=== PATIENT | female | born 1950 | race Caucasian/White ===

== ENCOUNTER → 2017-10-13 | Day surgery (SDC) | payer MEDICARE, OTHER ==
[~2017-10-13] MED LIST: ASPIR 8181 MG PO; ATENOLOL50 MG PO; ATORVASTATIN CA20 MG PO; FENTANYL CITRATE/PF 100MCG/2 ML INJ ONE; HUMALOG100 UNIT/1 SC; LOSARTAN POTASS25 MG PO; MIDAZOLAM HCL 2 MG/2 ML VIAL ONE; MUCINEX DM ER1 EACH PO; SYMBICORT 80-10.2 GM INH; ZYRTEC-D TABLE1 EACH PO
--- OUTSIDE RECORDS SUMMARY | 2017-10-13 09:22 | XMS REPORT | Summary of Care ---
Author Author [facility] Address [address] [place] [address] Phone Unavailable Care Team Providers Care Woodworking Machinist Name Role Phone GABI Kimbrough, VIRIDIANA Unavailable Unavailable ALVAREZ Kimbrough, KATHARINA Unavailable Unavailable MARY Kimbrough, ASTRID Unavailable Unavailable ALVAREZ WOODS [place], KATHARINA Unavailable Unavailable Unavailable Unavailable Functional Status Name Dates Details Functional status health issues are not documented Status: Name Dates Details Cognitive status health issues are not documented Status: Problems Name Dates Details Perennial allergic rhinitis, unspecified allergic rhinitis trigger Status: Active History of carcinoma in situ of colon (V13.89, Z86.008) Status: Active Other iron deficiency anemia (280.8, D50.8) Status: Active Vitamin B12 deficiency (266.2, E53.8) Status: Active Post-menopausal (V49.81, Z78.0) Status: Active Need for hepatitis C screening test (V73.89, Z11.59) Status: Active Acid reflux disease with ulcer (530.81, K21.9) Status: Active Moderate asthma (493.90, J45.909) Status: Active Screening mammogram, encounter for (V76.12, Z12.31) Status: Active Advance directive discussed with patient (V65.49, Z71.89) Status: Active Depression screen (V79.0, Z13.89) Status: Active Encounter for mini-mental status examination Status: Active Risk for falls (V15.88, Z91.81) Status: Active 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 (250.50, E13.3213) Status: Active Other cataract of both eyes (366.19, H26.8) Status: Active Bilateral dry eyes (375.15, H04.123) Status: Active Intestinal metaplasia of gastric mucosa (537.89, K31.89) Status: Active Polyp of colon (211.3, K63.5) Status: Active Anemia, pernicious (281.0, D51.0) Status: Active 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, 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) Status: Active Right elbow pain (719.42, M25.521) Status: Active Need for pneumococcal vaccination (V03.82, Z23) Status: Active Allergic reaction to drug, initial encounter (995.27, T78.40XA) Status: Active Limb pain (729.5, M79.609) Status: Active Tendinitis of right triceps (726.39, M77.8) Status: Active Pre-op exam (V72.84, Z01.818) Status: Active Preop examination (V72.84, Z01.818) Status: Active Insulin pump in place (V45.85, Z96.41) Status: Active Osteoporosis without current pathological fracture, unspecified osteoporosis type (733.00, M81.0) Status: Active Postmenopausal HRT (hormone replacement therapy) (V07.4, Z79.890) Status: Active Hiatal hernia (553.3, K44.9) Status: Active Abnormal blood chemistry (790.6, R79.9) Status: Active Lung nodule (793.11, R91.1) Status: Active Personal history of actinic keratosis (V13.3, Z87.2) Status: Active Personal history of malignant neoplasm of skin (V10.83, Z85.828) Status: Active Dermatofibroma of right thigh (216.7, D23.71) Status: Active Seborrheic keratoses (702.19, L82.1) Status: Active Anna angioma (228.01, D18.01) Status: Active Solar lentigo (709.09, L81.4) Status: Active Neoplasm of uncertain behavior of skin (238.2, D48.5) Status: Active Arthropod bite, sequela (906.2, W57.XXXS) Status: Active Chest pain (786.50, R07.9) Status: Active Acute URI (465.9, J06.9) Status: Active Asthma (493.90, J45.909) Status: Active Coronary artery disease due to calcified coronary lesion (414.00, I25.10) Status: Active History of basal cell carcinoma (V10.83, Z85.828) Status: Resolved Abnormal EKG (794.31, R94.31) Status: Active Mixed hyperlipidemia (272.2, E78.2) Status: Active SOBOE (shortness of breath on exertion) (786.05, R06.02) Status: Active Diabetic peripheral neuropathy associated with type 1 diabetes mellitus (250.61 , E10.42) Status: Active Pain of left thumb (729.5, M79.645) Status: Active Vitamin D deficiency (268.9, E55.9) Status: Active Trigger finger of left thumb (727.03, M65.312) Status: Active Uncontrolled type 1 diabetes with diabetic neuropathy (250.63, E10.40) Status: Active Renal insufficiency (593.9, N28.9) Status: Active Hypocalcemia (275.41, E83.51) Status: Active Hyperparathyroidism, secondary (588.81, N25.81) Status: Active Hypokalemia (276.8, E87.6) Status: Active 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 (250.51, E10.3293) Status: Active Acute serous otitis media of left ear, recurrence not specified (381.01, H65.02 ) Status: Active Benign essential hypertension (401.1, I10) Status: Active Medications Name Dates Details Fluticasone Propionate 50 MCG/ACT Nasal Suspension USE 2 SPRAYS IN EACH NOSTRIL ONCE DAILY Quantity: 1 SATTAR M.D., KATHARINA Active 16 GM Bottle HumaLOG 100 UNIT/ML Subcutaneous Solution Basal: [place] 0.8; 3A 0.85; 9AM 0.925; 1230PM 0.725; 4PM 0.8: ICR: [place] 1:10, 7AM 1:9 , 1030AM 1:9; CF:100 MDD:80 U * Quantity: 7 Refills: 0 GABI M.D.VIRIDIANA Active 10 ML Vial HydroCHLOROthiazide 25 MG Oral Tablet TAKE 1 TABLET BY MOUTH EVERY DAY * Quantity: 90 Refills: 0 SATTAR M.D., KATHARINA * Start : 21-Aug-2017 Active Aspirin 81 MG TABS TAKE 1 TABLET DAILY. * Quantity: 30 Refills: 3 Active Atenolol 25 MG Oral Tablet TAKE 1/2 TABLET DAILY. * Quantity: 45 Refills: 1 SATTAR M.D., KATHARINA Active Fish Oil Concentrate 1000 MG Oral Capsule 1-2 capsules daily * Refills: 0 Active Atorvastatin Calcium 80 MG Oral Tablet TAKE 1 TABLET BY MOUTH EVERY DAY * Quantity: 90 Refills: 0 SATTAR M.D., KATHARINA * Start : 07-Jul-2017 Active Losartan Potassium 25 MG Oral Tablet TAKE 1/2 TABLET DAILY. * Quantity: 45 Refills: 1 SATTAR M.D., KATHARINA Active Symbicort 160-4.5 MCG/ACT Inhalation Aerosol INHALE 2 PUFFS BY MOUTH TWICE A DAY. RINSE MOUTH AFTER USE * Quantity: 1 Refills: 0 SATTAR M.D. KATHARINA Active 6 GM Inhaler Zyrtec 10 MG TABS * Refills: 0 Active Claritin 10 MG/10ML SYRP * Refills: 0 Active Glucagon Emergency 1 MG Injection Kit USE DIRECTED. * Quantity: 1 Refills: 0 SATTAR M.D., KATHARINA * Start : 14-Aug-2016 Active ProAir HFA 108 (90 Base) MCG/ACT Inhalation Aerosol Solution INHALE 1 TO 2 PUFFS EVERY 4 TO 6 HOURS NEEDED. * Quantity: 1 Refills: 0 SATTAR M.D., KATHARINA * Start : 14-Aug-2016 Active Vitamin B-12 50 MCG Oral Tablet TAKE 1 TABLET DAILY. * Refills: 0 Active Multivitamins TABS TAKE 1 TABLET DAILY. * Refills: 0 Active Tums CHEW TAKE TABLET PRN * Refills: 0 Active Isa Contour Next Test In Vitro Strip CHECK BLOOD GLUCOSE 10 TIMES DAILY. * Quantity: 900 Refills: 0 VIRIDIANA ASHLEY M.D. * Start : 04-Feb-2017 Active Triamcinolone Acetonide 0.1 % External Cream Apply small amount to affected areas twice daily. Avoid face, folds of groin, folds of armpit. * Quantity: 1 Refills: 6 ASTRID HERNANDEZ M.D. * Start : 05-May-2017 Active 80 GM Tube Insulin Syringe 31G X 5/16" 0.3 ML use to inject with insulin vials once daily * Quantity: 1 Refills: 0 VIRIDIANA ASHLEY M.D. * Start : 13-Jul-2017 Active 100 Unit Box Azithromycin 250 MG Oral Tablet TAKE 2 TABLETS ON DAY 1 THEN TAKE 1 TABLET A DAY FOR 4 DAYS. * Quantity: 1 Refills: 0 KATHARINA PINO M.D. * Start : 12-Aug-2017 Active 6 Tablet Box Allergies and Adverse Reactions Name Dates Details amoxicillin (Allergy) Status: Active Amoxicillin TABS (Allergy) Status: Active Avelox (Allergy) Status: Active Ceftin (Allergy) Status: Active Cefzil (Allergy) Status: Active codeine (Allergy) Status: Active Compazine (Allergy) Status: Active Levaquin TABS (Allergy) Status: Active Phenergan (Allergy) Status: Active Pneumovax 23 25 MCG/0.5ML Injection Injectable (Allergy) Status: Active Sulfa Drugs (Allergy) Status: Active Past Medical History Name Dates Details History of basal cell carcinoma (V10.83, Z85.828) Status: Resolved History of cardiac disorder (V12.50, Z86.79) Status: Resolved History of History of cardiac catheterization (V45.89, Z98.890) Status: Resolved History of Pedal edema (782.3, R60.0) Status: Resolved History of tachycardia (V13.89, Z87.898) Status: Resolved Procedures Procedure Dates Details [QLH] CMP W/EGFR Date: 12-Aug-2017 [QLH] VITAMIN D, 25-HYDROXY, LC/MS/MS Date: 12-Aug-2017 [QLH] CALCIUM, IONIZED Date: 12-Aug-2017 [QLH] PHOSPHATE ( PHOSPHORUS) Date: 12-Aug-2017 [QLH] PTH, INTACT (WITHOUT CALCIUM) Date: 12-Aug-2017 History of Hysterectomy Completed History of Tonsillectomy Completed History of Facial Surgery Completed History of Sinus Surgery Completed History of Gallbladder Surgery Completed History of Colon Surgery Completed History of Cholecystectomy Completed History of varicose vein sclerotherapy Completed Immunization Name Dates Details Pneumovax 23 25 MCG/0.5ML Injection Injectable on: 16-Jun-2004 Tdap (Adacel) on: 09-Mar-2014 Zoster (Zostavax) on: 16-Jun-2014 Pneumo (Prevnar 7) on: 14-Nov-2014 Fluarix SUSP on: 16-Mar-2016 Flulaval Quadrivalent 0.5 ML SUSP on: 23-Feb-2017 Pneumococcal polysaccharide vaccine, 23 valent Lot #: [id number] on: 02-Mar-2017 Family History Name Dates Details Family history of cardiac disorder (V17.49, Z82.49) Status: Active Family history of osteoporosis (V17.81, Z82.62) Status: Active Name Dates Details Family history of cardiac disorder (V17.49, Z82.49) Status: Active Family history of osteoporosis (V17.81, Z82.62) Status: Active Name Dates Details Family history of diabetes mellitus (V18.0, Z83.3) Status: Active Name Dates Details Family history of hyperthyroidism (V18.19, Z83.49) Status: Active Name Dates Details Family history of cerebrovascular accident (CVA) (V17.1, Z82.3) Status: Active Family history of hypertension (V17.49, Z82.49) Status: Active Family history of hyperthyroidism (V18.19, Z83.49) Status: Active Family history of Heart trouble (429.9, I51.9) Status: Active Family history of cardiac disorder (V17.49, Z82.49) Status: Active Family history of osteoporosis (V17.81, Z82.62) Status: Active Family history of basal cell carcinoma (V16.8, Z80.8) Status: Active Name Dates Details Family history of COPD with asthma (493.20, J44.9) Status: Active Family history of Heart trouble (429.9, I51.9) Status: Active Family history of cardiac disorder (V17.49, Z82.49) Status: Active Family history of basal cell carcinoma (V16.8, Z80.8) Status: Active Name Dates Details Family history of osteoporosis (V17.81, Z82.62) Status: Active Social History Name Dates Details - Status: Name Dates Details Never smoker Vital Signs Date Test Result Details No Known Vitals to report Results Date Description Value Details :45 [QLH] PHOSPHATE ( PHOSPHORUS) PHOSPHATE ( PHOSPHORUS) 4.9 mg/dl (Above high threshold) Range: 2.1-4.3 :45 [QLH] PTH, INTACT (WITHOUT CALCIUM) PARATHYROID HORMONE, INTACT 40 pg/ml (Normal) Range: 14-64 Comments: Interpretive Guide Intact PTH Calcium -------Normal Parathyroid Normal NormalHypoparathyroidism Low or Low Normal LowHyperparathyroidism Primary Normal or High High Secondary High Normal or Low Tertiary High HighNon- Parathyroid Hypercalcemia Low or Low Normal High 18-Aug-20178:45 [QL] VITAMIN D, 25-HYDROXY, LC/MS/MS VITAMIN D,25-OH,TOTAL,IA 45 ng/ml (Normal) Range: 30-100 Comments: Vitamin D Status 25-OH Vitamin D: Deficiency: <20 ng/mLInsufficiency: 20 - 29 ng/mLOptimal: > or=30 ng/mL For 25-OH Vitamin D testing on patients on D2-supplementation and patients for whom quantitation of D2 and D3 fractions is required, the QuestAssureD(TM)25-OH VIT D, (D2,D3), LC/MS/MS is recommended: order code 12223 (patients >2yrs). For more information on this test, go to:http:// education.CHOBOLABS/faq/YWV485(This link is being provided for informational/educational purposes only.) 18-Aug-20178:45 [QLH] CALCIUM, IONIZED Comments: REPORT COMMENT:FASTING:YES CALCIUM, IONIZED 5.2 mg/dl (Normal) Range: 4.8-5.6 Plan of Care Name Dates Details Planned Observations Planned Goals not documented Planned Encounters Appointment; WES [address] On: 14-Sep-2017 15:00 Appointment; KATHARINA PINO M.D. On: 24-Sep-2017 13:30 Appointment; VIRIDIANA ASHLEY M.D. On: 12-Oct-2017 11:30 Appointment; KATHARINA PINO M.D. On: 10-Dec-2017 10:00 Appointment; JORGE NUÑEZ M.D. On: 17-Dec-2017 11:30 Appointment; ASTRID HERNANDEZ M.D. On: 23-Apr-2018 9:30 Instructions Name Dates Details Instructions not documented Encounters Appointment; KATHARINA PINO M.D. Encounter Diagnosis: Problem not documented On: 14-Aug-2016 14:00 Appointment; VIRIDIANA ASHLEY M.D. Encounter Diagnosis: Problem not documented On: 20-Aug-2016 10:30 Appointment; KIMMIE JUARES M.D. Encounter Diagnosis: Problem not documented On: 03-Sep-2016 8:30 Appointment; WES [address] Encounter Diagnosis: Problem not documented On: 03-Sep-2016 11:00 Appointment; KATHARINA PINO M.D. Encounter Diagnosis: Problem not documented On: 08-Sep-2016 13:00 Appointment; KIMMIE JUARES M.D. Encounter Diagnosis: Problem not documented On: 07-Oct-2016 15:30 Appointment; VIRIDIANA ASHLEY M.D. Encounter Diagnosis: Problem not documented On: 19-Nov-2016 10:00 Appointment; KATHARINA PINO M.D. Encounter Diagnosis: Problem not documented On: 01-Dec-2016 13:30 Appointment; JORGE NUÑEZ M.D. Encounter Diagnosis: Problem not documented On: 18-Dec-2016 13:00 Appointment; KATHARINA PINO M.D. Encounter Diagnosis: Problem not documented On: 06-Feb-2017 14:00 Appointment; KATHARINA PINO M.D. Encounter Diagnosis: Problem not documented On: 02-Mar-2017 14:00 Appointment; KATHARINA PINO M.D. Encounter Diagnosis: Problem not documented On: 03-Mar-2017 13:30 Appointment; KATHARINA PINO M.D. Encounter Diagnosis: Problem not documented On: 05-Mar-2017 9:30 Appointment; EULOGIO KIRBY M.D. Encounter Diagnosis: Problem not documented On: 30-Mar-2017 9:30 Appointment; KATHARINA PINO M.D. Encounter Diagnosis: Problem not documented On: 02-Apr-2017 13:00 Appointment; VIRIDIANA ASHLEY M.D. Encounter Diagnosis: Problem not documented On: 13-Apr-2017 9:30 Appointment; KATHARINA PINO M.D. Encounter Diagnosis: Problem not documented On: 17-Apr-2017 13:00 Appointment; JOSEMELODIE LEMUS Encounter Diagnosis: Problem not documented On: 21-Apr-2017 11:00 Appointment; ASTRID HERNANDEZ M.D. Encounter Diagnosis: Problem not documented On: 24-Apr-2017 9:30 Appointment; KATHARINA PINO M.D. Encounter Diagnosis: Problem not documented On: 24-Apr-2017 13:00 Appointment; PAULO COOK M.D. Encounter Diagnosis: Problem not documented On: 12-May-2017 9:30 Appointment; KEN YEAGER M.D. Encounter Diagnosis: Problem not documented On: 13-May-2017 10:20 Appointment; KATHARINA PINO M.D. Encounter Diagnosis: Problem not documented On: 14-May-2017 13:00 Appointment; EULOGIO KIRBY M.D. Encounter Diagnosis: Problem not documented On: 21-May-2017 9:30 Appointment; [facility] Encounter Diagnosis: Problem not documented On: 25-May-2017 8:00 Appointment; [facility] E[facility] Encounter Diagnosis: Problem not documented On: 25-May-2017 9:00 Appointment; KEN YEAGER M.D. Encounter Diagnosis: Problem not documented On: 27-May-2017 11:40 Appointment; EULOGIO KIRBY M.D. Encounter Diagnosis: Problem not documented On: 29-May-2017 8:00 Appointment; EULOGIO KIRBY M.D. Encounter Diagnosis: Problem not documented On: 09-Jun-2017 9:45 Appointment; EULOGIO KIRBY M.D. Encounter Diagnosis: Problem not documented On: 16-Jun-2017 12:45 Appointment; EULOGIO KIRBY M.D. Encounter Diagnosis: Problem not documented On: 07-Jul-2017 12:30 Appointment; VIRIDIANA ASHLEY M.D. Encounter Diagnosis: Problem not documented On: 13-Jul-2017 11:30 Appointment; WES [facility] Encounter Diagnosis: Problem not documented On: 11-Aug-2017 13:00 Appointment; KATHARINA PINO M.D. Encounter Diagnosis: Problem not documented On: 12-Aug-2017 9:00 Appointment; WES P[address] Encounter Diagnosis: Problem not documented On: 12-Aug-2017 11:00
== END | disposition home or self-care (01) ==
LOC: OR 09:19
PROVIDERS: ATTEND Ophthalmology
DX: H25.11 Age-related nuclear cataract, right eye (principal); I10 Essential (primary) hypertension; E11.9 Type 2 diabetes mellitus without complications; Z79.4 Long term (current) use of insulin; Z79.82 Long term (current) use of aspirin; Z88.1 Allergy status to other antibiotic agents; Z88.5 Allergy status to narcotic agent; Z88.2 Allergy status to sulfonamides; Z88.8 Allergy status to other drugs, medicaments and biological substances
CPT/HCPCS: 36415; 66984; 82948; J2250

== ENCOUNTER → 2017-10-27 | Day surgery (SDC) | payer MEDICARE, OTHER ==
[~2017-10-27] MED LIST changes: +OR PHACO EYE KIT ONE; +PREOP PHACO EYE KIT ONE
== END | disposition home or self-care (01) ==
LOC: OR 09:14
PROVIDERS: ATTEND Ophthalmology
DX: H25.12 Age-related nuclear cataract, left eye (principal); J45.909 Unspecified asthma, uncomplicated; I25.10 Atherosclerotic heart disease of native coronary artery without angina pectoris; I25.2 Old myocardial infarction; E11.9 Type 2 diabetes mellitus without complications; K21.9 Gastro-esophageal reflux disease without esophagitis; Z88.5 Allergy status to narcotic agent; Z88.2 Allergy status to sulfonamides; Z88.8 Allergy status to other drugs, medicaments and biological substances; Z79.4 Long term (current) use of insulin
CPT/HCPCS: 36415; 66984; 82948; J2250